=== PATIENT | male | born 1995 | race Caucasian/White ===

== ENCOUNTER 2017-01-30 23:28 | Emergency (ER) | payer BC ==
[2017-01-30 23:32] VITALS: BP 114/51; PULSE 52; RESP 18; TEMP 98.1; O2SAT 97
--- NOTE | 2017-01-31 04:38 | PD ---
HPI Chief Complaint: Alcohol/Drug Intoxication Time Seen by Provider: 04:26 Travel History International Travel<30 days: No Contact w/Intl Traveler<30days: No Traveled to known affect area: No History of Present Illness HPI 21-year-old male brought in by ambulance after being found in a parking lot. The patient admits to drinking a large amount of alcohol today. He was complaining of nausea to EMS and was given Zofran prior to arrival. Here in the emergency department the patient is sleeping, but is easily arousable. He admits to drinking alcohol throughout the day today. No physical complaints. He is from [place], here on spring. PENDING SALE TO [facility] Past Medical History Medical History: Denies Significant Hx Past Surgical History Surgical History: No Previous Surgery Social History Alcohol Use: Yes (OCC.) Tobacco Use: No Substance Use: No Allergies-Medications (Allergen,Severity, Reaction): Coded Allergies: No Known Allergies (Unverified , 01/30/17) Reported Meds & Prescriptions Reported Meds & Active Scripts Active No Active Prescriptions or Reported Medications Review of Systems Except as stated in HPI: all other systems reviewed are Neg Physical Exam Narrative GENERAL: Well-developed, well-nourished, sleeping, easily arousable, appears intoxicated, no acute distress. SKIN: Warm and dry. HEAD: Atraumatic. Normocephalic. EYES: Pupils equal, round, 3 mm, reactive to light. No scleral icterus. No injection or drainage. ENT: No nasal bleeding or discharge. Mucous membranes pink and dry. NECK: Trachea midline. No JVD. No nuchal rigidity. CARDIOVASCULAR: Regular rate and rhythm. RESPIRATORY: No accessory muscle use. Clear to auscultation. Breath sounds equal bilaterally. GASTROINTESTINAL: Abdomen soft, non-tender, nondistended. MUSCULOSKELETAL: No obvious deformities. No clubbing. No cyanosis. No edema. NEUROLOGICAL: Sleeping, easily arousable, moves all extremities. Data Data Last Documented VS Vital Signs Date Time Temp Pulse Resp B/P Pulse Ox O2 Delivery O2 Flow Rate FiO2 01/30/17 23:32 98.1 52 18 114/51 97 MDM Medical Decision Making Medical Screen Exam Complete: Yes Emergency Medical Condition: Yes Differential Diagnosis Alcohol intoxication, drug intoxication, intracranial abnormality Narrative Course Initial vital signs show heart rate 52, blood pressure 114/51, pulse ox 97% on room air, oral temp of 98.1F. This is a 21-year-old male who has been drinking alcohol throughout the day today was found sitting in a parking lot. He is easily arousable. I did not suspect intracranial abnormality. He is alcohol on his breath. He tells me he would like to sleep somewhat in the emergency department. I will allow him to sleep off his intoxication here. Diagnosis Primary Impression: Alcohol intoxication Qualified Code: F10.120 - Alcohol intoxication, uncomplicated Referrals: Primary Care Physician 3 days Scripts No Active Prescriptions or Reported Meds Disposition: 01 DISCHARGE HOME Condition: Stable Lazaro Palm MD Jan 31, 2017 04:38
[2017-01-31 06:08] VITALS: BP 126/57; PULSE 87; RESP 16; O2SAT 97
[2017-01-31] MEDS ORDERED: SODIUM CHLOR 0.9% 1000 ML INJ 1,000 ML IV ONE (06:15)
== END 2017-01-31 08:06 | disposition home or self-care (01) ==
LOC: NEPE 23:28
DX: F10.129 Alcohol abuse with intoxication, unspecified (principal)
CPT/HCPCS: 96360; 96361; 99284; J7030